=== PATIENT | male | born 1980 | race Caucasian/White ===

== ENCOUNTER 2020-08-02 11:35 | Emergency (ER) | payer BC, OTHER ==
[2020-08-02 12:09] VITALS: BMI 31.6
[2020-08-02] MEDS ORDERED: SODIUM CHLORIDE 1,000 ML IV STA (13:00)
[2020-08-02] MEDS ORDERED: KETOROLAC TROMETHAMINE 30 MG/1 ML VIAL IVPUSH ONE (13:00)
[2020-08-02 14:05] LABS: BASO % 1.5 % (0-2.0); EOS % 4.1 % (0-4.5); HEMATOCRIT 41.6 % (35.4-49); HEMOGLOBIN 14.5 GM/dL (11.7-16.9); LYMPH % 24.1 % (8-40); MCH 31.3 pg (25.7-33.7); MCHC 34.9 g/dl (32.0-35.9); MEAN CELL VOLUME 89.6 fl (80-96); MEAN PLT VOLUME 8.2 fl (7.5-11.1); MONO % 5.2 % (3.8-10.2); NEUT % 65.1 % (42.8-82.8); PLATELET COUNT 277 K/MM3 (134-434); RBC 4.64 M/mm3 (4.00-5.60); RDW 13.1 % (11.9-15.9)
[2020-08-02 14:28] LABS: POTASSIUM 4.5 mmol/L (3.5-5.1)
[2020-08-02 14:30] LABS: CALCIUM 9.1 mg/dL (8.5-10.1)
[2020-08-02 14:31] LABS: ALBUMIN 4.1 g/dl (3.4-5.0); BLOOD UREA NITROGEN 6.3 mg/dL (7-18)
[2020-08-02 14:34] LABS: CREATININE 0.9 mg/dL (0.55-1.3)
[2020-08-02 14:35] LABS: BILIRUBIN,TOTAL 0.7 mg/dL (0.2-1); TOT PROT 7.6 g/dl (6.4-8.2)
[2020-08-02 16:40] LABS: EPI CELLS 6 /uL (0-25.1); HYALINE CASTS 1 /uL (0-3.1); PH,URINE 6.5 (5.0-8.0); URINE APPEARANCE CLEAR; URINE BACTERIA 32 /uL (0-1359); URINE BILIRUBIN NEGATIVE (NEGATIVE); URINE COLOR YELLOW; URINE GLUCOSE (UA) NEGATIVE (NEGATIVE); URINE KETONE NEGATIVE (NEGATIVE); URINE LEUK ESTERASE NEGATIVE (NEGATIVE); URINE NITRITE NEGATIVE (NEGATIVE); URINE PROTEIN 1+ (NEGATIVE); URINE RBC 4 /uL (0-23.9); URINE WBC 3 /uL (0-25.8)
[2020-08-02 18:57] VITALS: BP 107/73; PULSE 64; TEMP 98.4
== END 2020-08-02 19:13 | disposition home or self-care (01) ==
LOC: JER 11:35
PROC: 3E0333Z Introduction of Anti-inflammatory into Peripheral Vein, Percutaneous Approach (ICD-10-PCS; principal; 2020-08-02)
PROC: 3E0337Z Introduction of Electrolytic and Water Balance Substance into Peripheral Vein, Percutaneous Approach (ICD-10-PCS; 2020-08-02)
DX: R10.9 Unspecified abdominal pain (principal)
CPT/HCPCS: 36415; 74176-TC; 76705-TC; 80053; 81003; 83690; 85025; 87086; 99285-25